=== PATIENT | male | born 1965 | race American Indian/Alaskan Native ===

== ENCOUNTER 2019-04-04 13:04 | Emergency (ER) | payer OTHER ==
--- NOTE | 2019-04-04 13:24 | Emergency Department Report ---
ED Palpitations HPI - General Chief Complaint: Arrhythmia/Palpitations Stated Complaint: AFIB Time Seen by Provider: 04/04/19 13:18 Source: patient, EMS (ems notes not available at time of chart dictation), RN notes reviewed Mode of arrival: Stretcher Limitations: No Limitations - History of Present Illness Initial Comments: This is a 53-year-old gentleman. The patient is not known to this provider previously. The patient typically follows with the [facility]. 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 He presents to the emergency room with a complaint of painless rapid heartbeat. This started last night. It is constant. Patient endorses caffeine consumption, and drinks coffee every day. Patient endorses a regular sleep schedule. He denies headache, neck pain, chest pain, abdominal pain, shortness of breath, urinary symptoms. He denies DVT, pulmonary embolus risk factors. He denies hematemesis, bright red blood per rectum. Family history is noncontributory. In the emergency room, patient found to be in A. fib with RVR. Patient given multiple rounds of intravenous diltiazem, and subsequent oral diltiazem, which slowed his rate down considerably. Currently, he is pain-free, and appears to be in a normal sinus rhythm. He does not have any complaints at this time. Screening laboratory studies pending. Patient endorsed that he prefers to be discharged and follow-up as an outpatient. Cardiology consultation is requested. Dr. Jose, of the cardiology team, is currently evaluating the patient, with his colleague nurse practitioner, Ms. Lisandra Gooden MD Complaint: rapid heart beat, "heart racing", palpitations -: Sudden Context: occured during rest Treatments Prior to Arrival: other (none) - Related Data Home Medications Medication Instructions Recorded Confirmed Last Taken No Known Home Medications [No 04/04/19 04/04/19 Unknown Reported Home Medications] Allergies Allergy/AdvReac Type Severity Reaction Status Date / Time No Known Allergies Allergy Unverified 04/04/19 13:41 ED Review of Systems ROS: Stated complaint: AFIB Other details as noted in HPI Constitutional: denies: fever Eyes: denies: eye discharge ENT: denies: epistaxis Respiratory: denies: cough Cardiovascular: palpitations. denies: chest pain Gastrointestinal: denies: abdominal pain, nausea, vomiting, hematemesis, melena Genitourinary: denies: urgency, dysuria Musculoskeletal: denies: back pain Skin: denies: lesions Neurological: denies: weakness Psychiatric: anxiety ED Past Medical Hx - Social History Smoking Status: Never Smoker Substance Use Type: None - Medications Home Medications: Home Medications Medication Instructions Recorded Confirmed Last Taken Type No Known Home Medications [No 04/04/19 04/04/19 Unknown History Reported Home Medications] ED Physical Exam - General Limitations: No Limitations General appearance: alert, in no apparent distress - Head Head exam: Present: atraumatic, normocephalic - Eye Eye exam: Present: normal appearance, EOMI. Absent: nystagmus - ENT ENT exam: Present: normal exam, normal orophraynx, mucous membranes moist, normal external ear exam - Neck Neck exam: Present: normal inspection, full ROM. Absent: tenderness, meningismus - Respiratory Respiratory exam: Present: normal lung sounds bilaterally. Absent: respiratory distress - Cardiovascular Cardiovascular Exam: Present: tachycardia, irregular rhythm, normal heart sounds. Absent: systolic murmur, diastolic murmur, rubs, gallop - GI/Abdominal GI/Abdominal exam: Present: soft. Absent: distended, tenderness, guarding, rebound, rigid, pulsatile mass - Rectal Rectal exam: Present: deferred - Extremities Exam Extremities exam: Present: normal inspection, full ROM, other (2+ pulses noted in the bilateral upper extremities. There is no long bony tenderness. There is no redness, pus or streaking.). Absent: pedal edema, calf tenderness - Back Exam Back exam: Present: normal inspection, full ROM. Absent: tenderness, CVA tenderness (R), CVA tenderness (L), paraspinal tenderness, vertebral tenderness - Neurological Exam Neurological exam: Present: alert, oriented X3, other (Extraocular movements intact. Tongue midline. No facial droop. Facial sensation intact to light touch in the V1, V2, V3 distribution bilaterally. 5 and 5 strength in 4 extremities.. Sensation is intact to light touch in 4 extremities.). Absent: motor sensory deficit - Psychiatric Psychiatric exam: Present: anxious - Skin Skin exam: Present: warm, dry, intact, normal color. Absent: rash ED Course Vital Signs 04/04/19 04/04/19 04/04/19 13:08 13:20 13:31 Temperature 97.7 F Pulse Rate 130 H 159 H Respiratory 18 19 Rate Blood Pressure 147/91 123/76 O2 Sat by Pulse 100 99 98 Oximetry 04/04/19 04/04/19 04/04/19 13:36 13:40 13:45 Temperature Pulse Rate 160 H 144 H 66 Respiratory 18 Rate Blood Pressure 115/76 123/76 O2 Sat by Pulse 99 Oximetry 04/04/19 04/04/19 04/04/19 13:52 13:58 14:00 Temperature Pulse Rate 82 66 Respiratory 18 18 Rate Blood Pressure 105/61 O2 Sat by Pulse 99 Oximetry 04/04/19 04/04/19 04/04/19 14:01 14:15 14:30 Temperature Pulse Rate 67 62 58 L Respiratory 24 17 21 Rate Blood Pressure 105/61 108/73 107/75 O2 Sat by Pulse 98 99 100 Oximetry 04/04/19 14:45 Temperature Pulse Rate 56 L Respiratory 12 Rate Blood Pressure 117/80 O2 Sat by Pulse Oximetry - Reevaluation(s) Reevaluation #1: 04/04/19 14:39 Differential diagnosis, including but not limited to: Thyroid derangement, electrolyte derangement, paroxysmal A. fib with RVR Assessment and plan: 53-year-old gentleman, with new onset A. fib with RVR, no pulmonary embolus or DVT risk factors, low risk by well's criteria, appears to have spontaneously converted into normal sinus rhythm. Screening laboratory studies pending. Urinalysis pending. X-ray of the chest unremarkable. Currently being evaluated by cardiology. Patient at low risk for thromboembolic event, as per the Chads 2 Vasc score. Patient has endorsed desired to be discharged. We will await results of screening laboratory studies, cardiology's recommendations, and reassess. I believe it would be reasonable to discharge the patient with close outpatient follow-up, with instructions to avoid caffeine, stimulants, and to practice proper sleep hygiene. Reevaluation #2: 04/04/19 14:46 Seen by cardiology, Dr. Jose, and Ms. Lisandra Gooden. Patient currently in normal sinus with no complaints. Not especially hypertensive. Cardiology recommends discharge with outpatient PCP and primary care follow-up. They specifically recommend that aspirin is not indicated, and they do not recommend any ginger blocking agents at this point in time. Reevaluation #3: 04/04/19 15:07 Patient resting comfortably, and in no acute distress. As a courtesy, we contacted the [facility], and I discussed the case with their physician coordinator, Dr. Rowland. She indicates that the [facility] will arrange outpatient follow-up with both primary care and cardiology. ED Medical Decision Making - Lab Data Result diagrams: 04/04/19 13:25 04/04/19 13:25 Vital Signs 04/04/19 04/04/19 04/04/19 13:08 13:20 13:31 Temperature 97.7 F Pulse Rate 130 H 159 H Respiratory 18 19 Rate Blood Pressure 147/91 123/76 O2 Sat by Pulse 100 99 98 Oximetry 04/04/19 04/04/19 04/04/19 13:36 13:40 13:45 Temperature Pulse Rate 160 H 144 H 66 Respiratory 18 Rate Blood Pressure 115/76 123/76 O2 Sat by Pulse 99 Oximetry 04/04/19 04/04/19 04/04/19 13:52 13:58 14:00 Temperature Pulse Rate 82 66 Respiratory 18 18 Rate Blood Pressure 105/61 O2 Sat by Pulse 99 Oximetry 04/04/19 04/04/19 14:01 14:15 Temperature Pulse Rate 67 62 Respiratory 24 17 Rate Blood Pressure 105/61 108/73 O2 Sat by Pulse 98 99 Oximetry Lab Results 04/04/19 04/04/19 Range/Units 13:25 13:40 WBC 4.3 L (4.5-11.0) K/mm3 RBC 5.39 H (3.65-5.03) M/mm3 Hgb 15.6 H (11.8-15.2) gm/dl Hct 45.3 (35.5-45.6) % MCV 84 (84-94) fl MCH 29 (28-32) pg MCHC 34 (32-34) % RDW 14.2 (13.2-15.2) % Plt Count 271 (140-440) K/mm3 PT 13.1 (12.2-14.9) Sec. INR 0.94 (0.87-1.13) - EKG Data -: EKG Interpreted by Me Rate: tachycardia - EKG Data When compared to previous EKG there are: previous EKG unavailable 04/04/19 14:43 EKG #1 shows atrial fibrillation, rapid ventricular response, rate 152 bpm, left axis, left anterior fascicular block, abnormal EKG, QTC prolonged, not having chest pain, this EKG is not consistent with ST elevation myocardial infarction. EKG #2 shows a bradycardic rate, 59 beats per minutes, some beats are sinus, some appeared to be junctional, question AV dissociation, premature atrial complex, left axis deviation, left anterior fascicular block, low voltage, poor PROGRESSION, this is an abnormal EKG, this EKG is not consistent with ST elevation myocardial infarction. Second EKG acquired shortly after diltiazem ad ministration. EKG #3 shows a sinus bradycardia, left axis deviation, left anterior fascicular block, question incomplete right bundle-branch block, nonspecific T-wave abnormalities, this is an abnormal EKG, this EKG is not consistent with ST elevation myocardial infarction. - Radiology Data Radiology results: report reviewed, image reviewed X-ray of the chest is negative for acute disease. Critical Care Time: Yes Critical care time in (mins) excluding proc time.: 35 Critical care attestation.: If time is entered above; I have spent that time in minutes in the direct care of this critically ill patient, excluding procedure time. ED Disposition Clinical Impression: History of atrial fibrillation Disposition: DC-01 TO HOME OR SELFCARE Is pt being admited?: No Does the pt Need Aspirin: No Condition: Stable Instructions: Atrial Fibrillation (ED) Additional Instructions: Avoid consumption of caffeinated beverages, stimulants, energy drinks. Make certain to get 7-8 hours of good quality sleep every 24 hours. Follow-up with a primary care doctor, or front end application developer, within the next 5-7 days. Patient may follow-up with his private primary care doctor, and in network front end application developer, or he may follow up with the front end application developer that saw him today, Dr. Lisa Galarza as directed. The patient may return to work, and work in the light duty/clerical capacity, but the patient should not return to full duty/combat duty/strenuous physical activities until cleared by either primary care doctor, front end application developer, or police physician. Please return to the emergency room right away with new, worsening or different symptoms, or symptoms not present on the initial emergency room evaluation. Referrals: WELLINGTON GALARZA MD [Staff Physician] - 7-10 days Forms: Work/School Release Form(ED)
[2019-04-04] MEDS ORDERED: CARDIZEM ONE ×2 (13:30→13:39)
[2019-04-04] MEDS ORDERED: NACL 0.9% 500 ML 500 ML IV ONE (13:36)
[2019-04-04] MEDS ORDERED: CARDIZEM IV ONE ×3 (13:36→13:40)
[2019-04-04] MEDS ORDERED: CARDIZEM PO ONE (13:41)
--- NOTE | 2019-04-04 14:00 | XRay Report ---
AP CHEST: HISTORY: Atrial fibrillation with rapid ventricular rate, tachycardia AP view of the chest demonstrates a normal mediastinal and cardiac contour with clear lungs and normal bony and soft tissue structures. IMPRESSION: Unremarkable AP chest.
[2019-04-04 14:09] LABS: Hematocrit 45.3 % (35.5-45.6); Hemoglobin 15.6 gm/dl (11.8-15.2); Mean Corpuscular HGB Conc 34 % (32-34); Mean Corpuscular Volume 84 fl (84-94); Platelet Count 271 K/mm3 (140-440); Red Blood Count 5.39 M/mm3 (3.65-5.03); Red Cell Distribution Width 14.2 % (13.2-15.2)
[2019-04-04 14:18] LABS: INR 0.94 (0.87-1.13)
[2019-04-04 14:48] LABS: Alanine Aminotransferase 25 units/L (7-56); Albumin 3.8 g/dL (3.9-5); BUN/Creatinine Ratio 11; Blood Urea Nitrogen 14 mg/dL (9-20); Hemolysis Index 18
[2019-04-04 14:52] VITALS: BP 117/80
[2019-04-04 15:17] LABS: Bacteria,Urine 3+ /HPF (Negative); Bilirubin,Urine NEG (Negative); Blood,Urine NEG (Negative); Color,Urine Yellow (Yellow); Mucus,Urine 2+ /HPF; Protein,Urine <15 mg/dL mg/dL (Negative); Urobilinogen,Urine < 2.0 mg/dL (<2.0)
--- NOTE | 2019-04-04 15:34 | Consultation ---
History of Present Illness Consult date: 04/04/19 Requesting physician: MARIANNA PADILLA Consult reason: atrial fibrillation History of present illness: The pt is a 53-year-old male with no known past medical history. He is previously unknown to our practice. He typically follows with the [facility]. 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 He presented to the emergency room with a complaint of constant palpitations and dizziness since last night. Pt states he was drinking an Icee when he noted the development of his symptoms which then persisted all night. Pt denies any chest pain, SOB, n/v, diaphoresis or syncope. He denies any prior cardiac issues, including CAD, AMI, HF or arrhythmia. He denies any ETOH use, illicit drug use or excessive caffeine intake. 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 Following arrival to ED, he was found to be in AFib with RVR. He was given several doses of IV cardizem and subsequently oral cardizem and he eventually converted back to NSR. On evaluation, he remains in NSR with HR 60s, no current complaints. ECG with no acute ischemic changes. Labwork is unremarkable. Past History Past Medical History: No medical history, other (? CARMINE ) Past Surgical History: Other (vasectomy ) Social history: , lives with family. denies: smoking, alcohol abuse, prescription drug abuse Medications and Allergies Allergies Allergy/AdvReac Type Severity Reaction Status Date / Time No Known Allergies Allergy Unverified 04/04/19 13:41 Home Medications Medication Instructions Recorded Confirmed Last Taken Type Nitrofurantoin Hinds/M-Cryst 100 mg PO Q12HR #14 capsule 04/04/19 Unknown Rx [Macrobid CAP] Review of Systems Constitutional: no weight loss, no weight gain, no fever, no chills, no sweats Ears, nose, mouth and throat: no ear pain, no nose pain, no sinus pressure, no sinus pain Cardiovascular: palpitations, rapid/irregular heart beat, lightheadedness, no chest pain, no orthopnea, no edema, no syncope, no shortness of breath, no dyspnea on exertion, no paroxysmal nocturnal dyspnea, no high blood pressure, no leg edema, no decreased exercise tolerance Respiratory: no cough, no shortness of breath, no dyspnea on exertion, no congestion, no wheezing, no pain on inspiration Gastrointestinal: no abdominal pain, no nausea, no vomiting, no diarrhea, no constipation, no change in bowel habits Genitourinary Male: no dysuria, no hematuria, no flank pain, no discharge, no urinary frequency, no urinary hesitancy Musculoskeletal: no neck stiffness, no neck pain, no shooting arm pain, no arm numbness/tingling, no low back pain, no shooting leg pain Integumentary: no rash, no pruritis, no redness, no sores, no wounds Neurological: no head injury, no paralysis, no weakness, no parathesias, no numbness, no tingling, no seizures, no syncope Psychiatric: no anxiety Endocrine: no cold intolerance, no heat intolerance Hematologic/Lymphatic: no easy bruising, no easy bleeding Allergic/Immunologic: no urticaria, no wheezing Physical Examination Vital Signs Temp Pulse Resp BP Pulse Ox 97.7 F 130 H 18 147/91 100 04/04/19 13:08 04/04/19 13:08 04/04/19 13:08 04/04/19 13:08 04/04/19 13:08 General appearance: no acute distress HEENT: Positive: PERRL, Normocephaly, Mucus Membranes Moist Neck: Positive: neck supple, trachea midline Cardiac: Positive: Reg Rate and Rhythm, S1/S2 Lungs: Positive: clear to auscultation Neuro: Positive: Grossly Intact Abdomen: Positive: Soft. Negative: Tender Skin: Positive: Clear. Negative: Wound Musculoskeletal: No Pain Extremities: Absent: edema Results 04/04/19 13:25 04/04/19 13:25 Cardiac Enzymes 04/04/19 Range/Units 13:25 AST 15 (5-40) units/L Coagulation 04/04/19 Range/Units 13:40 PT 13.1 (12.2-14.9) Sec. INR 0.94 (0.87-1.13) CBC 04/04/19 Range/Units 13:25 WBC 4.3 L (4.5-11.0) K/mm3 RBC 5.39 H (3.65-5.03) M/mm3 Hgb 15.6 H (11.8-15.2) gm/dl Hct 45.3 (35.5-45.6) % Plt Count 271 (140-440) K/mm3 Comprehensive Metabolic Panel 04/04/19 Range/Units 13:25 Sodium 142 (137-145) mmol/L Potassium 4.3 (3.6-5.0) mmol/L Chloride 107.8 H (98-107) mmol/L Carbon Dioxide 22 (22-30) mmol/L BUN 14 (9-20) mg/dL Creatinine 1.3 (0.8-1.5) mg/dL Glucose 98 (75-100) mg/dL Calcium 9.0 (8.4-10.2) mg/dL AST 15 (5-40) units/L ALT 25 (7-56) units/L Alkaline Phosphatase 71 (35-129) units/L Total Protein 6.7 (6.3-8.2) g/dL Albumin 3.8 L (3.9-5) g/dL - Imaging and Cardiology EKG: report reviewed, image reviewed EKG interpretations - Telemetry EKG Rhythm: Sinus Rhythm - EKG Sinus rhythms and dysrhythmias: sinus rhythm Assessment and Plan Pt presented with palpitations and dizziness since yesterday evening. He was found to be in AFib RVR following arrival to ED and converted to NSR after receiving IV and PO cardizem. He remains in NSR on evaluation with no current co mplaints. He has no known past medical history, although sleep apnea is suspected based on history provided. Pt regularly follows with [facility]. Currently stable cardiac status. Pt may discharge home from cardiology standpoint. No prescription medications recommended at this time. Recommend pt follow up with [facility] PCP and [facility] cementer machine joiner within 1-2 weeks of hospital discharge. Recommend OP sleep study. Pt verbalizes understanding. The patient has been seen in conjunction with Dr. Galarza who agrees with the assessment and plan of care. - Patient Problems (1) Transient atrial fibrillation Current Visit: Yes Status: Acute (2) Sleep apnea Current Visit: Yes Status: Chronic
== END 2019-04-04 15:30 | disposition home or self-care (01) ==
LOC: ED 13:04
DX: I48.91 Unspecified atrial fibrillation (principal); G47.30 Sleep apnea, unspecified; Z98.52 Vasectomy status
CPT/HCPCS: 36415; 71045; 80053; 81001; 83735; 84443; 85027; 85610; 87086; 93005; 93010; 96374; 99291; J7040